=== PATIENT | female | born 1990 | race Caucasian/White ===

== ENCOUNTER → 2019-08-24 | Outpatient (CLI) | payer OTHER, BC ==
[~2019-08-24] MED LIST: CELEXA 20MG20 MG/TAB PO; IBU800 M1 PO; PERCOCET 325 MG1 TA2 PO; PRENATAL1 TA7 PO; VALTREX 50500 MG/TAB PO; ZOVIRAX 200MG200 MG PO
== END ==
LOC: MC.RAD 10:49
DX: N63.20 Unspecified lump in the left breast, unspecified quadrant (principal)

== ENCOUNTER → 2020-02-27 | Outpatient (CLI) | payer OTHER, BC | LOC: MC.RAD 13:48 | DX: N63.20 Unspecified lump in the left breast, unspecified quadrant (principal) ==

== ENCOUNTER → 2020-03-12 | Outpatient (CLI) | payer OTHER, BC | LOC: MC.RAD 10:00 | DX: N63.20 Unspecified lump in the left breast, unspecified quadrant (principal); Z98.82 Breast implant status ==

== ENCOUNTER 2020-10-12 20:06 | Emergency (ER) | payer OTHER ==
[~2020-10-12] VITALS: Ht 162.6 cm; Wt 72.7 kg
[2020-10-12 20:18] VITALS: BP 121/90; TEMP 98.8
[2020-10-12 21:32] VITALS: PULSE 79
== END 2020-10-12 21:33 | disposition home or self-care (01) ==
LOC: COL.ER 20:06
DX: R51.9 Headache, unspecified (principal); F41.9 Anxiety disorder, unspecified; F32.9 Major depressive disorder, single episode, unspecified; F17.210 Nicotine dependence, cigarettes, uncomplicated; Z86.69 Personal history of other diseases of the nervous system and sense organs; Z79.899 Other long term (current) drug therapy
CPT/HCPCS: J1885; J2405; J7030

== ENCOUNTER 2021-11-04 00:49 | Emergency (ER) | payer OTHER ==
[~2021-11-04] VITALS: Ht 162.6 cm; Wt 63.6 kg
[2021-11-04 00:55] VITALS: TEMP 98.3
[2021-11-04 01:13] LABS: BASO # 0.1 K/mm3 (0.0-0.2); BASO % 0.9 % (0.0-2.0); EOS % 0.1 % (0.0-4.0); GRAN # 4.7 K/mm3 (1.4-6.5); GRAN % 60.1 % (42.2-75.2); HEMOGLOBIN 12.6 g/dl (12.5-16.0); LYMPH # 2.6 K/mm3 (1.2-3.4); LYMPH % 32.7 % (20.0-51.0); MEAN CELL VOLUME 83 fl (80.0-100.0); MEAN CORPUSCULAR HEMOGLOBIN 29 pg (27-31); MEAN CORPUSCULAR HGB CONC 34 g/dl (33.0-37.0); MEAN PLATELET VOLUME 10.1 fl (7.4-10.4); MONO # 0.5 K/mm3 (0.1-0.6); MONO % 6.1 % (1.7-9.3); PLATELET COUNT 262 K/mm3 (130-400); RED BLOOD COUNT 4.41 M/mm3 (4.10-5.30); REDCELL DISTRIBUTION WIDTH-CV 13.3 % (11.5-14.5)
[2021-11-04 01:14] LABS: HEMATOCRIT 36.7 % (37.0-47.0)
[2021-11-04 01:26] LABS: BILIRUBIN,TOTAL 0.7 mg/dL (0.2-1.2); CALCIUM 8.9 mg/dL (8.4-10.2); CREATININE, serum 0.8 mg/dL (0.57-1.11); POTASSIUM 3.7 mmol/L (3.5-4.5); TOTAL PROTEIN 6.8 gm/dL (6.2-8.1)
[2021-11-04] MEDS ORDERED: NORCO 325 MG-51 TAB PO ×2 (01:27→03:37)
[2021-11-04] MEDS ORDERED: PRIL40 PO (01:28)
[2021-11-04] MEDS ORDERED: PROTONIX 40MG T40 MG PO (03:37)
[2021-11-04] MEDS ORDERED: ZOFRAN ODT4 MG PO (03:37)
[2021-11-04 03:45] VITALS: BP 105/74; PULSE 71
== END 2021-11-04 03:50 | disposition home or self-care (01) ==
LOC: COL.ER 00:49
PROVIDERS: Personal Emergency Response Attendant
DX: K29.70 Gastritis, unspecified, without bleeding (principal); R91.1 Solitary pulmonary nodule; F17.210 Nicotine dependence, cigarettes, uncomplicated; Z28.311 Partially vaccinated for COVID-19
CPT/HCPCS: C9113; J2270; J2405; J3010; J7030; Q9967

== ENCOUNTER 2021-11-27 02:58 | Emergency (ER) | payer OTHER ==
[~2021-11-27] VITALS: Ht 162.6 cm; Wt 63.6 kg
[~2021-11-27 02:58] MED LIST changes: +NORCO 325 MG-51 TAB PO; +PRIL40 PO; +PROTONIX 40MG T40 MG PO; +ZOFRAN ODT4 MG PO
[2021-11-27 03:02] VITALS: TEMP 98
[2021-11-27 04:37] LABS: BASO # 0.1 K/mm3 (0.0-0.2); BASO % 0.8 % (0.0-2.0); GRAN # 6.9 K/mm3 (1.4-6.5); GRAN % 74.4 % (42.2-75.2); HEMOGLOBIN 12.6 g/dl (12.5-16.0); LYMPH # 1.7 K/mm3 (1.2-3.4); LYMPH % 18.8 % (20.0-51.0); MEAN CELL VOLUME 83 fl (80.0-100.0); MEAN CORPUSCULAR HEMOGLOBIN 28 pg (27-31); MEAN CORPUSCULAR HGB CONC 34 g/dl (33.0-37.0); MEAN PLATELET VOLUME 10.2 fl (7.4-10.4); MONO # 0.5 K/mm3 (0.1-0.6); MONO % 5.8 % (1.7-9.3); PLATELET COUNT 241 K/mm3 (130-400); RED BLOOD COUNT 4.44 M/mm3 (4.10-5.30); REDCELL DISTRIBUTION WIDTH-CV 13.2 % (11.5-14.5)
[2021-11-27 04:49] LABS: ALBUMIN 3.9 gm/dL (3.5-5.0); BILIRUBIN,TOTAL 0.9 mg/dL (0.2-1.2); CALCIUM 8.6 mg/dL (8.4-10.2); CREATININE, serum 0.8 mg/dL (0.57-1.11); POTASSIUM 3.9 mmol/L (3.5-4.5); TOTAL PROTEIN 6.7 gm/dL (6.2-8.1)
[2021-11-27] MEDS ORDERED: MAALOX ADVANCE148 ML PO (04:59)
[2021-11-27 05:06] VITALS: BP 122/87; PULSE 80
== END 2021-11-27 05:06 | disposition home or self-care (01) ==
LOC: COL.ER 02:58
PROVIDERS: Emergency Medicine
DX: K29.70 Gastritis, unspecified, without bleeding (principal); F17.210 Nicotine dependence, cigarettes, uncomplicated
CPT/HCPCS: J2270; J7030

== ENCOUNTER 2022-07-04 20:54 | Emergency (ER) | payer OTHER ==
[~2022-07-04] VITALS: Ht 162.6 cm; Wt 61.4 kg
[~2022-07-04 20:54] MED LIST changes: +MAALOX ADVANCE148 ML PO
[2022-07-04 21:00] VITALS: TEMP 97.7
[2022-07-04 23:23] VITALS: BP 120/70; PULSE 80
== END 2022-07-04 23:23 | disposition home or self-care (01) ==
LOC: COL.ER 20:54
DX: S60.051A Contusion of right little finger without damage to nail, initial encounter (principal); W50.0XXA Accidental hit or strike by another person, initial encounter

== ENCOUNTER 2023-07-13 13:41 | Emergency (ER) | payer OTHER ==
[~2023-07-13] VITALS: Ht 162.6 cm; Wt 61.4 kg
[2023-07-13 13:47] VITALS: BP 116/83; TEMP 97.3
[2023-07-13 14:44] VITALS: PULSE 73
== END 2023-07-13 14:44 | disposition home or self-care (01) ==
LOC: COL.ER 13:41
DX: S93.401A Sprain of unspecified ligament of right ankle, initial encounter (principal); Z87.39 Personal history of other diseases of the musculoskeletal system and connective tissue; X50.1XXA Overexertion from prolonged static or awkward postures, initial encounter; Y93.01 Activity, walking, marching and hiking